=== PATIENT | female | born 1965 | race Caucasian/White ===

== ENCOUNTER 2023-06-23 23:27 | Inpatient (IN) | payer MEDICARE, MEDICAID ==
[2023-06-24] MEDS ORDERED: ZOLPIDEM TARTRATE 10 MG TABLET PO PRN (02:45)
[2023-06-24] MEDS ORDERED: HALOPERIDOL 5 MG TABLET PO PRN (02:45)
[2023-06-24] MEDS ORDERED: FURO-152 PO (02:58)
[2023-06-24] MEDS ORDERED: OLAN5TAB77 PO (02:58)
[2023-06-24] MEDS ORDERED: DIVA-111 PO (02:58)
[2023-06-24] MEDS ORDERED: SUVO5TAB PO (02:58)
[2023-06-24] MEDS ORDERED: AMLO2.5T29 PO (02:58)
[2023-06-24] MEDS ORDERED: OMEP20 PO (02:58)
[2023-06-24] MEDS ORDERED: PALI410S IM (02:58)
[2023-06-24] MEDS ORDERED: BUPR75TA8 PO (02:58)
[2023-06-24] MEDS ORDERED: BUSP10TA23 PO (02:58)
[2023-06-24] MEDS ORDERED: AMIT50TA4 PO (02:58)
[2023-06-24 03:55] VITALS: BP 140/77; PULSE 89; RESP 18; TEMP 97.8; O2SAT 97
[2023-06-24] MEDS: LORazepam 2 MG TABLET PO PRN ×2 (04:37→20:29)
[2023-06-24] MEDS ORDERED: IBUPROFEN 400 MG TABLET PO PRN (07:30)
[2023-06-24] MEDS ORDERED: CloNIDine HCL 0.1 MG TABLET PO PRN (07:30)
[2023-06-24] MEDS ORDERED: DOCUSATE SODIUM 100 MG CAPSULE PO PRN (07:30)
[2023-06-24] MEDS ORDERED: LOPERAMIDE HCL 2 MG CAPSULE PO PRN (07:30)
[2023-06-24] MEDS ORDERED: NICOTINE 14 MG/24 HOUR PATCH TD PRN (07:30)
[2023-06-24] MEDS ORDERED: ONDANSETRON HCL 4 MG TABLET PO PRN (07:30)
[2023-06-24] MEDS ORDERED: PETROLATUM,WHITE 28 GM JELLY TP PRN (07:30)
[2023-06-24] MEDS ORDERED: GuaiFENesin/D-METHORPHAN [SUGAR-FREE] 200-20MG/10 ML SYRUP UDCUP PO PRN (07:30)
[2023-06-24] MEDS ORDERED: MAGNESIUM HYDROXIDE SUSPENSION 30 ML UDCUP PO PRN (07:30)
[2023-06-24] MEDS ORDERED: ACETAMINOPHEN 325 MG TABLET PO PRN (07:30)
[2023-06-24] MEDS ORDERED: MAG HYDROX/ALUMINUM HYD/SIMETH ES 30 ML SUSPENSION UDCUP PO PRN (07:30)
[2023-06-24] MEDS ORDERED: ALBUTEROL SULFATE HFA 90 MCG/PUFF 8 GM INHALER IH PRN ×2 (07:30→18:00)
[2023-06-24 08:39] VITALS: BP 124/65; PULSE 76; RESP 20; TEMP 98; O2SAT 96
[2023-06-24] MEDS: FUROSEMIDE 20 MG TABLET PO SCH (09:03)
[2023-06-24] MEDS: OMEPRAZOLE 20 MG CAPSULE PO SCH (09:03)
[2023-06-24] MEDS: AmLODIPine BESYLATE 2.5 MG TABLET PO SCH (09:03)
[2023-06-24] MEDS: DIVALPROEX SODIUM 250 MG DR TABLET PO SCH ×2 (11:30→20:18)
[2023-06-24] MEDS ORDERED: SUMAtriptan SUCCINATE 25 MG TABLET PO PRN (18:00)
[2023-06-24] MEDS: OLANZapine 10 MG TABLET PO SCH (20:17)
[2023-06-24 21:07] VITALS: BP 140/71; PULSE 88; RESP 18; TEMP 98.8; O2SAT 98
[2023-06-25 07:37] LABS: BASOPHILS % (AUTO) 0.7 % (0.0-2.0); EOSINOPHILS % (AUTO) 1.9 % (1.0-6.0); HEMATOCRIT 37.9 % (36-46); HEMOGLOBIN 12.8 g/dL (12.0-16.0); LYMPHOCYTES # (AUTO) 2.3 K/uL (1.0-4.8); LYMPHOCYTES % (AUTO) 23.6 % (22.0-44.0); MEAN CORPUSCULAR HEMOGLOBIN 32.5 pg (26.0-34.0); MEAN CORPUSCULAR HGB CONC 33.7 G/dL (31.0-37.0); MEAN CORPUSCULAR VOLUME 96 fL (80-100); MONOCYTES # (AUTO) 0.7 K/uL (0.1-1.0); MONOCYTES % (AUTO) 7.4 % (2.0-9.0); NEUTROPHILS # (AUTO) 6.5 K/uL (1.8-7.7); NEUTROPHILS % (AUTO) 66.4 % (40.0-70.0); PLATELET COUNT (AUTO) 325 K/uL (150-450); RED BLOOD CELL COUNT(AUTO) 3.94 MIL/uL (4.00-5.20); RED CELL DISTRIBUTION WIDTH 14.5 % (11.5-14.5); WHITE BLOOD COUNT (AUTO) 9.8 K/uL (4.5-11.0)
[2023-06-25 07:45] LABS: HEMOGLOBIN A1C 5.6 % (3.8-5.6)
[2023-06-25 08:05] LABS: ALANINE AMINOTRANSFERASE 47 U/L (12-78); ALBUMIN 3.2 g/dL (3.4-5.0); ALKALINE PHOSPHATASE 98 U/L (46-116); ANION GAP 7 mmol/L (8-16); ASPARTATE AMINOTRANSFERASE 29 U/L (15-37); BILIRUBIN,TOTAL 0.3 mg/dL (0.1-1.0); CALCIUM, TOTAL 9.1 mg/dL (8.8-10.5); CARBON DIOXIDE 30 mmol/L (22-29); CHLORIDE 104 mmol/L (98-107); CHOL/HDL RATIO 2.3 (3.9-5.7); CHOLESTEROL 172 mg/dL (131-200); CREATININE 0.76 mg/dL (0.60-1.30); FREE T4 (FREE THYROXINE) 1.14 ng/dL (0.76-1.46); GLOMERULAR FILTR. RATE CALC > 60 mL/min (>60); GLUCOSE,RANDOM 107 mg/dL (70-110); HDL CHOLESTEROL 74 mg/dL (40-60); LDL CHOL (CALC.) 86 mg/dL (0-130); POTASSIUM 3.8 mmol/L (3.5-5.1); SODIUM SERUM 141 mmol/L (136-145); T4 (THYROXINE) 10.2 mcg/dL (4.7-13.3); THYROID STIMULATING HORMONE 1.12 uIU/mL (0.36-3.74); TOTAL PROTEIN, SERUM 7.2 g/dL (6.4-8.2); TRIGLYCERIDES 62 mg/dL (15-150); UREA NITROGEN, BLOOD 14 mg/dL (7-18)
[2023-06-25 08:43] VITALS: BP 155/86; PULSE 79; RESP 18; TEMP 97.8; O2SAT 97
[2023-06-25] MEDS ORDERED: FUROSEMIDE 20 MG TABLET PO SCH (09:00)
[2023-06-25] MEDS ORDERED: AmLODIPine BESYLATE 2.5 MG TABLET PO SCH (09:00)
[2023-06-25] MEDS: LORazepam 2 MG TABLET PO PRN ×2 (09:30→20:23)
[2023-06-25] MEDS: FUROSEMIDE 20 MG TABLET PO SCH (09:30)
[2023-06-25] MEDS: DIVALPROEX SODIUM 250 MG DR TABLET PO SCH ×2 (09:31→20:01)
[2023-06-25] MEDS: AmLODIPine BESYLATE 2.5 MG TABLET PO SCH (09:31)
[2023-06-25] MEDS: CHOLECALCIFEROL (VIT D3) 1,000 UNITS [25 MCG] TABLET PO SCH (09:31)
[2023-06-25] MEDS: OMEPRAZOLE 20 MG CAPSULE PO SCH (09:31)
[2023-06-25] MEDS: OLANZapine 10 MG TABLET PO SCH (20:01)
[2023-06-25 20:20] VITALS: RESP 18
[2023-06-25 20:40] VITALS: BP 136/81; PULSE 90; RESP 18; TEMP 97.4; O2SAT 98
[2023-06-25 21:20] VITALS: RESP 18
[2023-06-26] MEDS: DIVALPROEX SODIUM 250 MG DR TABLET PO SCH (08:38)
[2023-06-26] MEDS: OMEPRAZOLE 20 MG CAPSULE PO SCH (08:38)
[2023-06-26] MEDS: FUROSEMIDE 20 MG TABLET PO SCH (08:38)
[2023-06-26] MEDS: CHOLECALCIFEROL (VIT D3) 1,000 UNITS [25 MCG] TABLET PO SCH (08:38)
[2023-06-26] MEDS: AmLODIPine BESYLATE 2.5 MG TABLET PO SCH (08:43)
[2023-06-26] MEDS ORDERED: OLAN10TA74 PO ×2 (10:24→11:03)
== END 2023-06-26 12:30 | disposition home or self-care (01) | DRG 885 ==
LOC: B2X 06-24 03:03
PROVIDERS: ADMIT Psychiatry & Neurology Psychiatry; ATTEND Psychiatry & Neurology Psychiatry
DX: F31.2 Bipolar disorder, current episode manic severe with psychotic features (principal); I11.0 Hypertensive heart disease with heart failure; E78.5 Hyperlipidemia, unspecified; J44.9 Chronic obstructive pulmonary disease, unspecified; K21.9 Gastro-esophageal reflux disease without esophagitis; K58.9 Irritable bowel syndrome, unspecified; I50.9 Heart failure, unspecified; F12.90 Cannabis use, unspecified, uncomplicated; Z63.4 Disappearance and death of family member; Z88.1 Allergy status to other antibiotic agents; Z88.5 Allergy status to narcotic agent; Z88.8 Allergy status to other drugs, medicaments and biological substances; Z91.030 Bee allergy status; Z79.899 Other long term (current) drug therapy; Z91.041 Radiographic dye allergy status; Z88.2 Allergy status to sulfonamides
CPT/HCPCS: 80053; 80061; 83036; 84436; 84439; 84443; 85025; 86592